=== PATIENT | male | born 1950 | race Caucasian/White ===

== ENCOUNTER → 2017-07-31 | Outpatient (CLI) | payer MEDICARE | END | disposition home or self-care (01) | LOC: CVU 08:35 | PROVIDERS: ATTEND Internal Medicine Cardiovascular Disease | DX: I50.9 Heart failure, unspecified (principal) | CPT/HCPCS: C8929 ==

== ENCOUNTER 2020-12-26 14:20 | Emergency (ER) | payer MEDICARE ==
[~2020-12-26] VITALS: Ht 177.8 cm; Wt 87.0 kg
[~2020-12-26 14:20] MED LIST: ALLO300T PO; AMLO-150 PO; ASPI325T20 PO; ATOR40TA78 PO; CARV12.543 PO; FENO145T19 PO; FURO-93 PO; FURO40TA6 PO; INSU100I11 SQ-INSULIN; INSU100I13 SQ-INSULIN; LISI5TAB7 PO; LOSA100T14 PO; NITR0.4T41 SL; OXYC5TAB98 PO
[2020-12-26 16:09] LABS: BASOPHILS % (AUTO) 1 % (0-1); EOSINOPHILS % (AUTO) 3 % (1-7); LYMPHOCYTES % (AUTO) 16 % (22-44); MEAN CORPUSCULAR HEMOGLOBIN 30.3 pg (27.5-34.5); MEAN CORPUSCULAR HGB CONC 33.7 g/dL (33.2-36.2); MEAN PLATELET VOLUME 8.7 fL (7.4-10.4); MONOCYTES % (AUTO) 6 % (2-9); NEUTROPHILS % (AUTO) 74 % (42-75); PLATELET COUNT 182 x10^3/uL (130-400); RED BLOOD COUNT 5.48 x10^6/uL (4.38-5.82); RED CELL DISTRIBUTION WIDTH 15.2 % (9.4-14.8)
[2020-12-26 16:16] LABS: ALBUMIN 3.7 g/dL (3.4-5.0); ANION GAP 5 mmol/L (5-15); CALCIUM 8.5 mg/dL (8.5-10.1); CHLORIDE 109 mmol/L (98-107)
[2020-12-26 16:21] LABS: ALANINE AMINOTRANSFERASE 19 U/L (12-78); ALKALINE PHOSPHATASE 85 U/L (45-117); BILIRUBIN,TOTAL 0.7 mg/dL (0.2-1.0); CREATININE 0.89 mg/dL (0.7-1.3); TOTAL PROTEIN 7.7 g/dL (6.4-8.2)
--- NOTE | 2020-12-26 16:32 | NUR ---
PATIENT TO ROOM FROM LOBBY
--- NOTE | 2020-12-26 16:37 | NUR ---
PT AMBULATED TO RESTROOM WITH STEADY GAIT.
[2020-12-26 16:47] VITALS: BP 143/92
== END 2020-12-26 17:52 | disposition home or self-care (01) ==
LOC: ED 15:13
DX: R60.0 Localized edema (principal); I11.0 Hypertensive heart disease with heart failure; I50.9 Heart failure, unspecified; M79.605 Pain in left leg; I25.2 Old myocardial infarction; Z87.891 Personal history of nicotine dependence
CPT/HCPCS: 36415; 71045; 80053; 83880; 85025; 99285